=== PATIENT | female | born 1990 | race Caucasian/White ===

== ENCOUNTER → 2019-08-26 14:26 | Outpatient (BNVA) | payer MEDICAID, SELFPAY | PROVIDERS: Family Provider Nurse Practitioner Family; Visit Provider Nurse Practitioner Family | DX: N93.9 Abnormal uterine and vaginal bleeding, unspecified (principal) | CPT/HCPCS: 81025 ==

== ENCOUNTER → 2019-10-15 13:05 | Outpatient (BNVA) | payer MEDICAID, SELFPAY | PROVIDERS: Family Provider Nurse Practitioner Family; Visit Provider Obstetrics & Gynecology | DX: Z34.81 Encounter for supervision of other normal pregnancy, first trimester (principal) | CPT/HCPCS: 76815; 80053; 80307; 84315; 85027; 86592; 86762; 86803; 86850; 86900; 87340; 87491; 87591; 87806 ==

== ENCOUNTER → 2019-11-16 10:54 | Outpatient (BNVA) | payer MEDICAID, SELFPAY | PROVIDERS: Family Provider Nurse Practitioner Family; Visit Provider Obstetrics & Gynecology | DX: Z34.92 Encounter for supervision of normal pregnancy, unspecified, second trimester (principal) | CPT/HCPCS: 76815 ==

== ENCOUNTER → 2020-01-04 09:15 | Outpatient (BNVA) | payer MEDICAID, SELFPAY | PROVIDERS: Family Provider Nurse Practitioner Family; Visit Provider Obstetrics & Gynecology | DX: Z36.89 Encounter for other specified antenatal screening (principal); Z3A.21 21 weeks gestation of pregnancy | CPT/HCPCS: 76805 ==

== ENCOUNTER → 2020-01-10 11:03 | Outpatient (BNVA) | payer MEDICAID, SELFPAY | PROVIDERS: Family Provider Nurse Practitioner Family; Visit Provider Obstetrics & Gynecology | DX: O26.899 Other specified pregnancy related conditions, unspecified trimester (principal); N89.8 Other specified noninflammatory disorders of vagina | CPT/HCPCS: 83986; 84315 ==

== ENCOUNTER → 2020-02-01 09:08 | Outpatient (BNVA) | payer MEDICAID, SELFPAY | PROVIDERS: Family Provider Nurse Practitioner Family; Visit Provider Obstetrics & Gynecology | DX: Z34.92 Encounter for supervision of normal pregnancy, unspecified, second trimester (principal); O26.842 Uterine size-date discrepancy, second trimester | CPT/HCPCS: 82950; 84315 ==

== ENCOUNTER → 2020-03-06 09:10 | Outpatient (BNVA) | payer MEDICAID, SELFPAY | PROVIDERS: Family Provider Nurse Practitioner Family; Visit Provider Obstetrics & Gynecology | DX: Z34.83 Encounter for supervision of other normal pregnancy, third trimester (principal) | CPT/HCPCS: 84315; 85027 ==

== ENCOUNTER 2020-04-13 22:12 | Outpatient (CLI) | payer MEDICAID, SELFPAY ==
[2020-04-13] VITALS (17 sets, daily range): BP systolic 123–135; BP diastolic 61–89; PULSE 84–94; RESP 17–18; TEMP 36.4–36.5; O2SAT 92–97; BMI 32.4
[2020-04-13 22:50] LABS: Blood Urine Neg (Negative); Glucose Urine UA Norm (Normal); Ketones Urine Negative (Negative); Protein Urine Neg (Negative); Specific Gravity, Urine 1.005 (1.005-1.030); Urine Appearance SL Hazy (CLEAR); Urine Color Yellow (Yellow); pH Urine 7 (5-7)
[2020-04-13 22:51] LABS: Add Urine Culture? Yes; Bacteria Urine 2+ /hpf; Bilirubin Urine Neg (Negative); Leukocyte Esterase Urine 1+ (Negative); Nitrate Urine Negative (Negative); RBC Urine 0-4 /hpf (0-2); Squamous Epithelial Cell Urine 0-4 /hpf (0-5); Urobilinogen Urine Norm (Negative); WBC Urine 15-25 /hpf (0-5)
--- NOTE | 2020-04-13 23:41 | PC.NURSE ---
Pt stated that the Tylenol she had taken before arriving to the unit has helped with her pain.
== END 2020-04-13 23:36 | disposition home or self-care (01) ==
LOC: OPOB 22:13 → OBGYN 22:13
PROVIDERS: Family Provider Nurse Practitioner Family; Visit Provider Obstetrics & Gynecology
DX: O26.899 Other specified pregnancy related conditions, unspecified trimester (principal); Z3A.00 Weeks of gestation of pregnancy not specified; R10.9 Unspecified abdominal pain
CPT/HCPCS: 59025; 81001; 87086; 99211

== ENCOUNTER → 2020-04-21 10:20 | Outpatient (BNVA) | payer MEDICAID, SELFPAY | PROVIDERS: Family Provider Nurse Practitioner Family; Visit Provider Obstetrics & Gynecology | DX: O26.842 Uterine size-date discrepancy, second trimester (principal); F84.0 Autistic disorder; R56.9 Unspecified convulsions; O99.343 Other mental disorders complicating pregnancy, third trimester; Z3A.36 36 weeks gestation of pregnancy | CPT/HCPCS: 84315; 87081 ==

== ENCOUNTER → 2020-04-25 08:08 | Outpatient (BNVA) | payer MEDICAID, SELFPAY | PROVIDERS: Family Provider Nurse Practitioner Family; Visit Provider Obstetrics & Gynecology | DX: Z34.80 Encounter for supervision of other normal pregnancy, unspecified trimester (principal) | CPT/HCPCS: 81000 ==

== ENCOUNTER → 2020-05-01 12:56 | Outpatient (BNVA) | payer MEDICAID, SELFPAY | PROVIDERS: Family Provider Nurse Practitioner Family; Visit Provider Obstetrics & Gynecology | DX: Z34.90 Encounter for supervision of normal pregnancy, unspecified, unspecified trimester (principal) | CPT/HCPCS: 81000 ==

== ENCOUNTER 2020-05-06 21:06 | Outpatient (CLI) | payer MEDICAID, SELFPAY ==
[2020-05-06 22:34] VITALS: BMI 38.9
[2020-05-06 22:37] VITALS: RESP 16
[2020-05-06 22:54] LABS: Actim Prom Negative
[2020-05-06 23:36] VITALS: RESP 16
== END 2020-05-06 23:41 | disposition home or self-care (01) ==
LOC: OPOB 21:08 → OBGYN 21:16
PROVIDERS: Family Provider Nurse Practitioner Family; Visit Provider Obstetrics & Gynecology
DX: O26.899 Other specified pregnancy related conditions, unspecified trimester (principal); Z3A.00 Weeks of gestation of pregnancy not specified; R10.9 Unspecified abdominal pain
CPT/HCPCS: 59025; 84112; 99211

== ENCOUNTER → 2020-05-08 13:30 | Outpatient (BNVA) | payer MEDICAID, SELFPAY | PROVIDERS: Family Provider Nurse Practitioner Family; Visit Provider Obstetrics & Gynecology | DX: Z34.80 Encounter for supervision of other normal pregnancy, unspecified trimester (principal); F84.0 Autistic disorder; R56.9 Unspecified convulsions | CPT/HCPCS: 84315; 87635 ==

== ENCOUNTER 2020-05-10 17:21 | Inpatient (IN) | payer MEDICAID, SELFPAY ==
[2020-05-10] VITALS (17 sets, daily range): BP systolic 98–121; BP diastolic 62–75; PULSE 87–96; RESP 16; TEMP 36.3–36.7; BMI 35.2
[2020-05-10 18:45] LABS: Basophils % 0.4 %; Eosinophils # 0.3 10^3/uL (0.0-0.8); Eosinophils % 2.6 %; Hematocrit 34.8 % (37.0-47.0); Lymphocytes # 2.4 10^3/uL (0.8-4.8); Lymphocytes % 22.8 %; Mean Corpuscular HGB Conc 31.6 g/dL (30.0-36.0); Mean Corpuscular Hemoglobin 24.4 pg (28.0-34.0); Mean Corpuscular Volume 77.2 fL (81-99); Mean Platelet Volume 10.4 fL (7.4-10.4); Monocytes # 0.7 10^3/uL (0.2-0.9); Monocytes % 6.2 %; Neutrophils # 7.12 10^3/uL (1.8-7.7); Neutrophils % 67.5 %; Nucleated Red Blood Cells % 0 %; Platelet Count 240 10^3/cmm (130-400); Red Blood Count 4.51 10^6/uL (4.1-5.3); Red Cell Distribution Width 15.7 % (12.1-15.1); White Blood Count 10.5 10^3/uL (4.0-10.0)
[2020-05-10 19:05] LABS: Amphetamines Screen Urine Negative (Negative); Barbiturates Screen Urine Negative (Negative); Benzodiazepines Screen Urine Negative (Negative); Cocaine Screen Urine Negative (Negative); Opiate Screen Urine Negative (Negative); PCP Screen Urine Negative (Negative); THC Screen Urine Negative (Negative)
[2020-05-10] MEDS: lactated ringers 500 ML 999 ML IV (20:20)
[2020-05-10] MEDS: miSOPROStol 100 mcg tablet 25 MCG VAGINAL (20:52)
--- NOTE | 2020-05-10 21:47 | US_ITS ---
WS: [id number] LIMITED OBSTETRICAL ULTRASOUND HISTORY: possible transverse lie presentation COMPARISON: 03/06/2020 Presentation: Vertex. Cervix: Closed and normal length. HEART: FHR of 150 BPM. US/US OB limited [id number] IMPRESSION: Vertex presentation.
--- NOTE | 2020-05-10 22:05 | PC.NURSE ---
ROLY FROM ULTRASOUND AT BEDSIDE TO CONFIRM PRESENTATION
[2020-05-11] VITALS (58 sets, daily range): BP systolic 93–136; BP diastolic 55–87; PULSE 73–104; RESP 16–18; TEMP 35.6–36.8; O2SAT 96–100
[2020-05-11] MEDS: miSOPROStol 100 mcg tablet 25 MCG VAGINAL (01:13)
[2020-05-11] MEDS: oxytocin 30 UNIT/500 ML BAG 600 UNIT IV (07:11)
--- NOTE | 2020-05-11 08:49 | P.PCNOB_ITS ---
Delivery Note: Date of delivery: May 11, 2020 Pre-delivery diagnoses: Term Post-delivery diagnoses: Term delivered Procedure: Spontaneous vaginal delivery Op report anesthesia: None Delivering Physician: Mamadou Ellis MD Estimated blood loss (mL): 300 Findings: Baby girl, Apgars 7 and 9 weight 2730 g, nuchal cord x1 body cord x1 Pre-Delivery Course: Ms. Crowder is a 29 year old established patient with LMP of 07/20/2019, ELIJAH of 05/14/2020 based on 9 week ultrasound. Admitted to labor and delivery for elective induction at 39+ 3 days. HPI: Received appropriate care. Daily vitamins since start of care. labs have all been normal, including negative for HIV. She was found to negative for Group B Strep from screening at 36 weeks. She has gained approximately 19 lbs throughout the . She denies a history of HTN during . Glucose tolerance screening for gestational diabetes was negative. Delivery: The patient was noted to be complete and pushing at 0700, so was placed in the dorsal lithotomy position, prepped and draped in the usual sterile fashion for a vaginal delivery. Pt. Noted with no anesthesia. At 0708 the patient delivered a viable at 39 weeks female weighing 2730 g with scores of 7 and 9 at one and five minutes, respectively. The vertex was delivered spontaneously over an intact perineum. The patient was asked to push and the head delivered spontaneously in the OBEY position, over an intact perineum. A nuchal cord was noted x 1 and 1 body loop noted, and delivered through around head as necessary. The anterior shoulder delivered easily and the posterior shoulder followed. The remainder of the infant was easily delivered and the oropharynx and nasopharynx was bulb suctioned, meconium stained fluid was noted. The infant was noted to have spontaneous cry and spontaneous movement of all four extremities. The cord was clamped x 2 and cut and noted to have 2 arteries and one vein. The was passed to the warmer where nursing personnel were in attendance. The placenta delivered intact spontaneously and the uterus was explored. 20 units of Pitocin was placed in the IV bag to firm the uterus. Examination of the cervix and vaginal vault did not reveal any lacerations. A vaginal pack was then placed. Examination of the perineum showed no laceration. The vaginal pack was then removed. The patient tolerated this procedure well, and recovered in L&D with her infant in her LDR room. All sponge and needle counts were correct. A&P Assessment and plan (1) Autism: Status: Acute (2) Term delivered: Status: Acute Coding Level of Care Code Acute Compo Conveyor Operator for Lina Frias Diagnoses Autism F84.0 Term delivered O80
[2020-05-11] MEDS: acetaminophen 325 mg Tablet 650 MG PO (10:56)
[2020-05-11] MEDS: ibuprofen 800 mg tablet PO ×2 (15:53→21:54)
[2020-05-11] MEDS: docusate sodium 100 mg Capsule PO (17:51)
[2020-05-11 19:56] LABS: Hematocrit 34.6 % (37.0-47.0); Hemoglobin 10.7 g/dL (11.5-15.3); Mean Corpuscular HGB Conc 30.9 g/dL (30.0-36.0); Mean Corpuscular Hemoglobin 24.3 pg (28.0-34.0); Mean Corpuscular Volume 78.5 fL (81-99); Mean Platelet Volume 10.7 fL (7.4-10.4); Platelet Count 249 10^3/cmm (130-400); Red Blood Count 4.41 10^6/uL (4.1-5.3); Red Cell Distribution Width 15.9 % (12.1-15.1); White Blood Count 11.5 10^3/uL (4.0-10.0)
[2020-05-12] VITALS (9 sets, daily range): BP systolic 107–117; BP diastolic 67–75; PULSE 51–86; RESP 17–20; TEMP 36.1–36.8; O2SAT 97
[2020-05-12] MEDS: prenatal vitamin Capsule 1 CAP PO (10:34)
[2020-05-12] MEDS: ibuprofen 800 mg tablet PO ×2 (10:34→14:53)
[2020-05-12] MEDS: docusate sodium 100 mg Capsule PO (10:35)
--- NOTE | 2020-05-12 17:12 | PM.OBGYDC ---
Discharge Providers FACILITY SALES AND ADMIN Date of Admission: 05/10/20 17:21 Date of Discharge: 05/12/20 Attending Provider at Admission: Mamadou Ellis MD Attending Provider at Discharge: Mamadou Ellis MD Primary Care Provider: Aidee Sierra MD Diagnoses at Discharge Discharge Diagnosis (1) Autism: Status: Acute (2) Term delivered: Status: Acute Reason for Visit Reason for Visit: Induction of labor Hospital Course Hospital Course Ms. Crowder is a 29 year old established patient with LMP of 07/20/2019, ELIJAH of 05/14/2020 based on 9 week ultrasound. Admitted to labor and delivery for elective induction at 39+ 3 days. HPI: Received appropriate care. Daily vitamins since start of care. labs have all been normal, including negative for HIV. She was found to negative for Group B Strep from screening at 36 weeks. She has gained approximately 19 lbs throughout the . She denies a history of HTN during . Glucose tolerance screening for gestational diabetes was negative. She received misoprostol for cervical ripening and progressed to have a spontaneous vaginal delivery complicated by a nuchal cord and body cord. She delivered female infant weighing 2730 g with scores of 7 and 9. observation has been uneventful. She afebrile and hemodynamically stable. Tolerating diet well. Ambulating without difficulty. Information Peripartum Data: Infant Delivery Method: Vaginal Physical Exam Narrative: EXAM NARRATIVE: GA; alert and oriented x 3 HEENT: normal Breasts: engorged Nipples - skin intact Lungs; clear to auscultation Heart: regular rhythm, no murmurs. Abd: Appropriately tender. BS+. Uterine fundus below umbilicus. No Fundal Tenderness. Perineum: normal lochia. Extremities: no edema, no cyanosis, no tenderness. Discharge Data Data Completed and Pending: Completed Studies During Hospitalization Category Date Time Status US OB limited [id number] Stat Ultrasound 05/10/20 21:47 Completed Labs from last 24 hours 05/11/20 18:53 WBC 11.5 H RBC 4.41 Hgb 10.7 L Hct 34.6 L MCV 78.5 L MCH 24.3 L MCHC 30.9 RDW 15.9 H Plt Count 249 MPV 10.7 H Vitals: Last Vital Signs Temp 97.0 F L 05/12/20 10:39 Pulse 83 05/12/20 16:13 Resp 18 05/12/20 10:39 BP 113/75 05/12/20 16:13 Pulse Ox 97 05/12/20 10:39 Discharge Plan Discharge Patient Disposition: Home Condition: Stable Prescriptions: New acetaminophen 325 mg capsule 325 mg PO Q4H PRN (Reason: fever or pain) Qty: 60 RF: 0 docusate sodium [Colace] 100 mg capsule 100 mg PO BID Qty: 30 RF: 0 ferrous sulfate 325 mg (65 mg iron) tablet 325 mg PO BID Qty: 60 RF: 0 ibuprofen 800 mg tablet 800 mg PO TID PRN (Reason: pain) Qty: 60 RF: 0 Continued vitamin #49-iron-FA 6.75 mg iron- 200 mcg tablet 1 tab PO DAILY RF: 0 Discharge Orders: Discharge Order (Routine); Ordered 05/12/20 Ordered By: Mamadou Ellis Referrals: Mamadou Ellis MD [Physician] - 6 Weeks Discharge Diet: Usual diet Discharge Activity: Increase activity as tolerated Patient Instructions: Depression (GEN), Perineal Care (GEN), Pre-eclampsia and Eclampsia (GEN), OB Discharge Report, OB Food/Drug Interaction Guide, OB Vaginal Deliveries - [facility], Abnormal Bleeding Activity Restrictions/Additional Instructions: 1. Please call [facility] [place] [facility] on next working day to make your appointment in 6 weeks. 2. Please stay home until you come back to the clinic on first post-operative check up. 3. Please follow instructions on your medications CAREFULLY. 4. If you have abdominal incision, do not cover it unless dressing is necessary because of drainage. OK to shower, but avoid bath. Leave steri-strips until they fall off. If they are still on one week after surgery, you may remove them. 5. If you had vaginal surgery or vaginal repair, Dr. Ellis may instruct you to take SITZ bath. 6. Yellow, blood tinged odorous vaginal discharge is usually normal after hysterectomy or vaginal surgeries. 7. No sexual intercourse, tampons, or douches until you are completely released from the post-operative care. 8. Avoid constipation by eating right and maybe using some Metamucil or Milk of Magnesia. 9. All prescription refills are given during the working hours. Please do no wait till it runs out. Call the clinic at [phone] before your medication runs out. The clinic will get in touch with your doctor to prescribe medications if necessary. 10. Please remain within 40 mile radius from our hospital because emergencies do happen now and then during the post-operative period. 11. If you have stairs at home, take one step at a time slowly and minimize the number of trips. It helps to stay in one floor for the next few days. No lifting except what you can lift by one hand until you are released from the post-operative care. 12. Driving is discouraged until you are well healed. It may be 3-4 weeks before you feel strong enough to drive. You should be able to turn and look through the rear window without pain and you should be able to push the brake pedal very hard without pain before you drive. No fast rules, but SAFETY should be your primary concern. DO NOT drive if you are on sedating medications such as narcotics. 13. Call the clinic (during working hours) to make urgent appointment or go to the Emergency room, if any of the following occurs: i. Vaginal bleeding becomes heavy, more than a period. ii. Incision becomes red and sore, or drains pus. iii. Your temperature is over 100.4 or you have chill. iv. IV site becomes red and swollen (a little ``knot?? is usually OK) v. Persistent nausea and vomiting vi. Persistent constipation or diarrhea vii. Rash or allergic reaction to medications. Discharge Attestations FACILITY SALES AND ADMIN Time Spent in Discharge Care*: greater than 30 min Coding Level of Care Code Acute Long Distance Billing Operator for g Fwd Diagnoses Autism F84.0 Term delivered O80
[2020-05-12] MEDS: diphenhydrAMINE 25 mg Capsule PO (17:33)
== END 2020-05-12 18:00 | disposition home or self-care (01) | DRG 806 ==
LOC: OPOB 17:35 → OBGYN 17:35 → OPOB 05-11 00:29 → OBGYN 05-11 00:29
PROVIDERS: Admitting Provider Obstetrics & Gynecology; Family Provider Nurse Practitioner Family; PCP Family Medicine; Visit Provider Obstetrics & Gynecology
DX: O77.0 Labor and delivery complicated by meconium in amniotic fluid (principal); F84.0 Autistic disorder; Z37.0 Single live birth; O99.344 Other mental disorders complicating childbirth; O69.81X0 Labor and delivery complicated by cord around neck, without compression, not applicable or unspecified; Z3A.39 39 weeks gestation of pregnancy
CPT/HCPCS: 36415; 59025; 59409; 76815; 80306; 85025; 85027; 99211